=== PATIENT | female | born 1960 | race Caucasian/White ===

== ENCOUNTER 2018-05-06 10:03 | Day surgery (SDC) | payer MEDICAID ==
[2018-04-29 10:12] VITALS: BMI 30.2
[~2018-05-06 10:03] MED LIST: Acetaminophen-Codeine 300/30 mg Tab PO PRN; Dextrose 5%/0.45% NS 1,000 ML IV SCH
[2018-05-06] MEDS ORDERED: ceFAZolin IV 1 gm in Dextrose 1 GM/50 ML BAG IVPB ONE (11:54)
[2018-05-06] MEDS ORDERED: EPINEPHrine 1:1000 Nasal Sol(30mL) ONE (11:55)
[2018-05-06] MEDS ORDERED: Oxymetazoline 0.05% Nasal Spray (30 ml) NS ONE (11:55)
[2018-05-06] MEDS ORDERED: Lidocaine/Epinephrine 1% 1:100000 10 ML IJ ONE (11:55)
[2018-05-06] MEDS ORDERED: Midazolam 2 MG/2 ML VIAL ONE (12:05)
[2018-05-06] MEDS ORDERED: Propofol 10 mg/ml Inj (20 ML) ONE (12:05)
[2018-05-06] MEDS ORDERED: HYDROmorphone 0.5 mg/0.5 ml ISec IVP PRN (12:36)
[2018-05-06 15:22] VITALS: RESP 16; O2SAT 95
[2018-05-06 17:43] VITALS: BP 108/59; PULSE 72; TEMP 97.8
--- NOTE | 2018-05-06 23:09 | OP ---
PROCEDURE DATE: 05/06/2018 PREOPERATIVE DIAGNOSIS: Nasopharyngeal mass. POSTOPERATIVE DIAGNOSIS: Nasopharyngeal mass. PROCEDURE: Endoscopic nasopharyngeal mass biopsy. SIGNIFICANT FINDINGS: Nasopharyngeal mass. DESCRIPTION OF PROCEDURE: The patient was brought into the room, placed in supine position. Anesthesia was initiated through an ET tube. Afrin-soaked pledgets were inserted into the nasal cavity, remained there for at least five minutes and removed. The patient was draped in the usual manner. A direct laryngoscope was inserted into the nasal cavity. Nasopharyngeal mass was noted. Biopsy was taken using forceps. Bleeding was controlled using suction cautery and Afrin-soaked pledgets. The scope was removed. The patient was taken off anesthesia and taken to recovery room in stable manner. Gage Carrasco MD
== END 2018-05-06 17:44 | disposition home or self-care (01) ==
LOC: C.SDS 10:03
PROVIDERS: ATTEND Otolaryngology
DX: C11.0 Malignant neoplasm of superior wall of nasopharynx (principal); J34.89 Other specified disorders of nose and nasal sinuses
CPT/HCPCS: 30100; 88305; J0690; J1170; J2250; J2704; J3010